=== PATIENT | female | born 1975 | race Caucasian/White ===

== ENCOUNTER 2025-07-13 21:15 | Inpatient (IN) | payer BC ==
[~2025-07-13] VITALS: Ht 165.1 cm; Wt 53.5 kg
--- NOTE | 2025-07-13 21:46 | ELECTROCARDIOGRAPH REPORT ---
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 Jesus Vogel Measurements Intervals [place] Rate: 66 P: 81 ID: [id number] QRS: 83 QRSD: 94 T: 50 QT: 378 QTc: 396 Interpretive Statements Sinus rhythm Minimal ST depression, diffuse leads Electronically Signed On 07-14-2025 7:35:[address] Jesus Vogel Please click the below link to view image of tracing.
[2025-07-13 22:08] LABS: MEAN PLATELET VOLUME 7.4 FL (7.4-10.4); RED CELL DISTRIBUTION WIDTH 13.1 % (11.5-14.5)
--- NOTE | 2025-07-13 22:15 | RADIOLOGY REPORT ---
CHEST RADIOGRAPH INDICATION: CP TECHNIQUE: Single frontal view of the chest was obtained COMPARISON: None FINDINGS: Lungs and pleural spaces are clear. Cardiac silhouette and rodrick are within normal limits. Bones and soft tissues demonstrate no significant abnormality. IMPRESSION: No acute disease.
[2025-07-13 22:26] LABS: CREATININE 0.96 MG/DL (0.40-0.90); TOTAL CARBON DIOXIDE 23.7 MMOL/L (24-32); eCRCL 61 ML/MIN; eGFR 62 ML/MIN
[2025-07-13 22:34] LABS: PRO BRAIN NATRIURETIC PEPTIDE 148 PG/ML (0-125)
--- NOTE | 2025-07-13 23:30 | Physician Documentation ---
History of Present Illness Chief Complaint: Abdominal Pain Stated Complaint: ABD PAIN HPI This is a medical screening examination for a 49-year-old female who presents to the emergency department with a epigastric pain that radiates to the back & shoulder with mild nausea. Pain is moderate in severity. No changes in stool color. Pain is postprandial a proximally 15-20 minutes. Has a gallbladder imaging in the past which was unremarkable and he has had esophageal diet rotation past. Reports that this pain is different in character. Medication Reconciliation Allergies: Uncoded Allergies: PENICILLIN (Allergy, Unknown, 07/13/25) Scheduled Bupropion HCl (Bupropion Xl), 1 TAB DAILY, (Reported) Estradiol (Estradiol), 1 TAB PO BID, (Reported) Pantoprazole Sodium (PROTONIX tablet), 40 MG PO BID Progesterone,Micronized (Progesterone), 2 TAB PO HS, (Reported) Testosterone (Testosterone), 10 MG TOP DAILY, (Reported) Thyroid,Pork (Freight Caller Thyroid), 1 TAB PO QAM, (Reported) Scheduled PRN Alprazolam (Alprazolam), 1 TAB PO BID PRN for for anxiety/agitation, (Reported) ONDANSETRON ODT 4mg tablet (Ondansetron Odt), 1 TAB PO BID PRN for nausea/vo miting, (Reported) Review of Systems Constitutional: Reports: see HPI Physical Exam Vital Signs: RN Vital Signs have been reviewed: Yes, Temperature: 97.9, Heart Rate: 106, Respiratory Rate: 22, BP: 122/66, Pulse Oximetry: 98, Weight: 53.500 Oxygen Flow Rate: 0 General Appearance: alert, WD/WN, moderate distress EENT: PERRL/EOMI Neck: normal inspection Respiratory: lungs clear, no respiratory distress Chest: no accessory muscle use Gastrointestinal: tenderness Back: tender Extremities: normal range of motion Neurologic: oriented x4 Psychiatric: normal mood/affect Skin: normal color Progress Results/Orders Results/Orders Vital Signs 07/13/25 21:17 Temp 97.9 Pulse 106 Resp 22 B/P (MAP) 122/66 Pulse Ox 98 O2 Flow Rate 0 Laboratory Tests Test 07/13/25 21:41 White Blood Count 11.8 H Red Blood Count 4.49 Hemoglobin 13.4 Hematocrit 40.2 Mean Corpuscular Volume 89.6 Mean Corpuscular Hemoglobin 29.8 Mean Corpuscular Hemoglobin Concent 33.3 Red Cell Distribution Width 13.1 Platelet Count 348 Mean Platelet Volume 7.4 Neutrophils (%) (Auto) 81.1 H Lymphocytes (%) (Auto) 12.2 L Monocytes (%) (Auto) 4.2 Eosinophils (%) (Auto) 2.3 Basophils (%) (Auto) 0.2 Neutrophils # (Auto) 9.6 H Lymphocytes # (Auto) 1.4 Monocytes # (Auto) 0.5 Eosinophils # (Auto) 0.3 Basophils # (Auto) 0.0 CBC Comment Sodium Level 141 Potassium Level 3.8 Chloride Level 109 H Carbon Dioxide Level 23.7 L Anion Gap 8 Blood Urea Nitrogen 11 Creatinine 0.96 H Estimated GFR/1.73 m2 62 BUN/Creatinine Ratio 11.5 Glucose Level 116 H Calcium Level 8.5 Total Bilirubin 0.4 Aspartate Amino Transf (AST/SGOT) 23 Alanine Aminotransferase (ALT/SGPT) 24 Alkaline Phosphatase 73 Troponin I High Sensitivity 11 Pro-B-Type Natriuretic Peptide 148 H Total Protein 6.8 Albumin 3.5 Globulin 3.3 Albumin/Globulin Ratio 1.1 Lipase 92 H Chemistry Comments EKG/XRAY/CT/US/VASC/MRI Chest X-Ray : Additional Comments CHEST RADIOGRAPH INDICATION: CP TECHNIQUE: Single frontal view of the chest was obtained COMPARISON: None FINDINGS: Lungs and pleural spaces are clear. Cardiac silhouette and rodrick are within normal limits. Bones and soft tissues demonstrate no significant abnormality. IMPRESSION: No acute disease. : Impression EXAM: CT CT ABDOMEN PELVIS W/ IV CONTRAST History: Epigastric pain COMPARISON: None TECHNIQUE: Multidetector spiral CT of the abdomen and pelvis was performed from lung bases to pubic symphysis. Intravenous contrast was administered during this examination. Portal venous imaging was obtained. Axial, coronal and sagittal multiplanar reformats were performed by the technologist on a separate workstation. Radiation Dose : 1. Abdomen/Pelvis: CTDIvol 8.47 mGy, DLP 356.49 mGy*cm. CONTRAST: Type of contrast: Omnipaque 300 Contrast injected: 100 ml FINDINGS: Lung Bases: No acute or significant lung base finding. Normal heart size. No pleural or pericardial effusion. Liver: The liver is normal in size. No focal lesions. Normal hepatic vascular enhancement. Gallbladder and Biliary Tree: Unremarkable Spleen: Unremarkable Pancreas: The pancreas is normal in appearance without focal lesions or abnormal enhancement. Adrenal Glands: Unremarkable Kidneys: No hydronephrosis. Bladder: Unremarkable Bowel: The stomach is grossly normal in appearance. Small bowel and colon are normal in caliber and distribution. Normal appendix is visualized in the right lower quadrant without findings of appendicitis. Ascites: Absent Lymphadenopathy: No mesenteric, retroperitoneal or periportal lymphadenopathy. Abdominal Wall and Mesentery: Unremarkable. Vasculature: The visualized abdominal aorta is normal in size and caliber. Abdominal and pelvic vessels demonstrate normal enhancement. Pelvic Organs: Unremarkable Musculoskeletal: No aggressive focal bony lesions, acute fractures or dislocation. IMPRESSION: No acute abdominal or pelvic finding. Medical Decision Making Additional information obtaine: N/A Findings Medical screening examination completed. 49-year-old female with a epigastric pain. We will add advanced imaging to evaluate for intra-abdominal surgical pathologies. Initial labs and chest x-ray imaging reviewed. Mild leukocytosis noted which may be demargination and/or infectious process. Patient awaits for bedded main ED. She is in moderate distress. Additional imaging may be indicated such as ultrasound. Differential Dx:Considerations: Appendicitis, Gastritis/PUD, Gastroenteritis, Hepatitis, Pancreatitis Additional Comments 49-year-old female presenting with acute on chronic abdominal pain. Lab workup does indicate a very minimally elevated lipase level as well as a minimally elevated WBC count. Patient has no risk factors for pancreatitis however clinically presents this way. Remainder of lab work is grossly unremarkable. CT of the abdomen and pelvis was unremarkable as well. This occurred after the patient had a meal is consistent with fatty foods. I suspect some early pancreatitis. Patient was given a GI cocktail which improved her symptoms but did not fully resolve them. Patient is still markedly uncomfortable in the clinical picture fits early pancreatitis. For this reason I believe it would be prudent to have her admitted further treating written care. I started her on IV fluids and gave her a dose of IV morphine. Departure Disposition: ADMITTED INPATIENT Admitted to Inpatient Unit: to hospitalist Impression: Primary Impression: Pancreatitis Qualified Codes: K85.90 - Acute pancreatitis without necrosis or infection, unspecified Condition: Guarded Referrals: NO PRIMARY CARE PROVIDER (PCP) Prescriptions Pantoprazole Sodium (PROTONIX tablet) 40 Mg Tablet. 40 MG PO BID, #60 TAB.SR Prov: ANTHONY ALICIA DO 07/14/25 [facility] Form Admit Criteria Met or Not Met: YES Signature Scribe Signature: 1 Attestation: The note accurately reflects work and decisions made by me.Arabella Lucas MD 07/14/25 03:29 JOSE ANTONIO ORLANDO Jul 13, 2025 23:30 ARABELLA GARCIA MD Jul 14, 2025 02:17
[2025-07-13] MEDS ORDERED: iohexol 300mg/ml 100ml inj. ONE (23:42)
[2025-07-14] VITALS (17 sets, daily range): BP systolic 74–139; BP diastolic 39–89; PULSE 60–89; RESP 12–19; TEMP 97.3–98.2; O2SAT 93–100
--- NOTE | 2025-07-14 02:21 | RADIOLOGY REPORT ---
EXAM: CT CT ABDOMEN PELVIS W/ IV CONTRAST History: Epigastric pain COMPARISON: None TECHNIQUE: Multidetector spiral CT of the abdomen and pelvis was performed from lung bases to pubic symphysis. Intravenous contrast was administered during this examination. Portal venous imaging was obtained. Axial, coronal and sagittal multiplanar reformats were performed by the technologist on a separate workstation. Radiation Dose : 1. Abdomen/Pelvis: CTDIvol 8.47 mGy, DLP 356.49 mGy*cm. CONTRAST: Type of contrast: Omnipaque 300 Contrast injected: 100 ml FINDINGS: Lung Bases: No acute or significant lung base finding. Normal heart size. No pleural or pericardial effusion. Liver: The liver is normal in size. No focal lesions. Normal hepatic vascular enhancement. Gallbladder and Biliary Tree: Unremarkable Spleen: Unremarkable Pancreas: The pancreas is normal in appearance without focal lesions or abnormal enhancement. Adrenal Glands: Unremarkable Kidneys: No hydronephrosis. Bladder: Unremarkable Bowel: The stomach is grossly normal in appearance. Small bowel and colon are normal in caliber and distribution. Normal appendix is visualized in the right lower quadrant without findings of appendicitis. Ascites: Absent Lymphadenopathy: No mesenteric, retroperitoneal or periportal lymphadenopathy. Abdominal Wall and Mesentery: Unremarkable. Vasculature: The visualized abdominal aorta is normal in size and caliber. Abdominal and pelvic vessels demonstrate normal enhancement. Pelvic Organs: Unremarkable Musculoskeletal: No aggressive focal bony lesions, acute fractures or dislocation. IMPRESSION: No acute abdominal or pelvic finding. Radiation optimization: All CT scans at this facility use at least one of these dose optimization techniques: automated exposure control mA and/or kV adjustment per patient size (includes targeted exams where dose is matched to clinical indication) or iterative reconstruction.
[2025-07-14] MEDS: LIDOcaine 2% Viscous 15ml cup MM ONE (03:02)
[2025-07-14] MEDS: mag hydrox/Alum hydrox/simeth 30ml oral suspension PO ONE (03:02)
[2025-07-14] MEDS: ondansetron 4mg rapidly disintigrating tab PO STA (03:02)
[2025-07-14] MEDS ORDERED: ondansetron/PF 4mg/2ml inj IV PRN (04:10)
[2025-07-14] MEDS: morphine 4 MG/ML inj SYRINge IV ONE (04:22)
[2025-07-14] MEDS: normal saline 1000ml 1,000 ML IV ONE (04:24)
--- NOTE | 2025-07-14 05:15 | HISTORY AND PHYSICAL-Residence ---
History & Physical Providers to CC Resident Creating Document: ANGELITO MALAGON RES ~ History of Present Illness Reason for Admit\Complaint: Abdominal pain History of Present Illness The patient is a 49-year-old female with no significant past medical history who presented with the acute onset abdominal pain. The pain began abruptly last night at approximately 8:00 p.m., about 30 minutes after eating an in and out burger. It was described as sharp, stabbing, severe, 9/10, located in the epigastric region, and radiating to the back. The pain was associated with nausea but no vomiting. By the time she arrived to the ED, the pain had largely subsided, however, she continues to have significant epigastric tenderness to palpation. She reports a two year history of intermittent abdominal discomfort, though she states this episode feel different in character in severity. She underwent EGD approximately nine months ago, which showed a hiatal hernia and GERD; esophageal dilatation was performed and no biopsy were taken. She denies diarrhea but endorses persistent nausea and unintentional weight loss of approximately 25-30 lb over the past year, primarily due to decreased oral intake because nausea is triggered when attempting to eat. She denies alcohol use, new medications, or NSAID use. She does not take any regular medications. Her PCP is MARK Guo through [facility]. In the ED, lab workup was notable for mild leukocytosis; 11.8, and a mildly elevated lipase of 92. Liver tests were normal. CT scan of the abdomen and pelvis was unremarkable. She was admitted for further evaluation and management of abdominal pain. Allergies: Uncoded Allergies: PENICILLIN (Allergy, Unknown, 07/13/25) Past Medical History Past Medical History Irritable bowel syndrome, hiatal hernia, GERD Past Surgical History Surgical History Comment No significant surgical history Past Social History Social History Comment Patient lives with her family. Denies smoking, alcohol, or recreational drugs ROS All Other Systems: Reviewed and Negative ROS As stated above in the HPI, otherwise all systems are reviewed and negative. Exam Vitals: Vital Signs Date Time Temp Pulse Resp B/P (MAP) Pulse Ox O2 Delivery O2 Flow Rate FiO2 07/14/25 04:22 16 07/14/25 01:09 07/13/25 21:17 97.9 106 98 0 General: Awake and Alert, no acute distress. HEENT: Conjunctiva pink, Sclera clear, Mucus Membranes moist. Neck: Supple without masses and tenderness. Resp: Unlabored. Lungs clear to auscultation bilaterally. Heart: Regular Rate and rhythm, normal S1 and S2 without murmur, rub or gallop. Abdomen: Markedly tender epigastric region. Bowel sounds present Extremities: No cyanosis,clubbing or edema. Skin: Warm and Dry. Diagnostic Data Last Recorded Lab Results: 07/13/25214007/13/252140 Advance Care Planning Advanced Care plannin - 30 Minutes Additional Plan 1. Epigastric abdominal pain Concern for peptic/upper GI source versus early/mild pancreatitis Abrupt severe epigastric pain radiating to the back after a fatty meal, associated with nausea Pain has largely resolved but persistent epigastric tenderness remains Lipase mildly elevated at 92; this does not meet diagnostic criteria for pancreatitis, though very early or mild pancreatitis remains possible CTA abdomen unremarkable LFTs normal, lowering suspicion for biliary obstruction. Abdominal ultrasound pending Prior EGD showed hiatal hernia with reflux Red flags present; unintentional 25-30 lb weight loss, chronic nausea, poor oral intake Plan: Keep NPO initially; advance diet slowly as tolerated IV fluids; LR 100 mL/hour Antiemetics; Zofran Protonix 40 mg IV daily Repeat lipase and CMP in the morning to trend Consider GI consult given chronic symptoms and significant weight loss 2. Chronic nausea with significant unintentional weight loss 25-30 lb/one year Concerning for organic GI pathology rather than IBS alone. PUD versus gastritis versus GERD versus celiac disease Plan: Consider repeat EGD with biopsies 3. Leukocytosis: WBC 11.8 Likely reactive giving symptoms and normal imaging Trend CBC. Monitor vitals and exam Code status: Full code DVT prophylaxis: Able to walk Angelito Malagon Internal Medicine Resident, PGY-3 Plan reviewed with bedside team. Patient seen through remote audiovisual assessment through HIPAA compliant setup. All labs, flowsheets, and images reviewed Cumulative nonprocedural care time spent in directed patient care = 30 min Date of Service: Jul 14, 2025 Billing Provider: DARWIN JIM MD, SHAMS, RES Jul 14, 2025 05:15 DARWIN JIM MD Jul 14, 2025 07:13
[2025-07-14] MEDS: ringers solution, lacted 1,000 ML IV SCH (06:04)
[2025-07-14] MEDS: enoxaparin 40mg/0.4ml syringe SUBCUT SCH (08:00)
[2025-07-14] MEDS ORDERED: ONDA-243 PO (09:38)
[2025-07-14] MEDS ORDERED: ALPR0.5T9 PO (09:38)
[2025-07-14] MEDS ORDERED: THYR90TA12 PO (09:38)
[2025-07-14] MEDS ORDERED: PROG200C11 PO (09:38)
[2025-07-14] MEDS ORDERED: ESTR1TAB28 PO (09:38)
[2025-07-14] MEDS ORDERED: BUPR-480 (09:38)
[2025-07-14] MEDS ORDERED: TEST60GE3 TOP (10:08)
[2025-07-14] MEDS ORDERED: propofol 10mg/ml 20ml vial IV ONE (11:45)
[2025-07-14] MEDS ORDERED: PANT-47 PO (14:04)
[2025-07-14] MEDS: pantoprazole 40MG/NS 100ML BAG 100 ML IV SCH (16:50)
[2025-07-14] MEDS: normal saline 1000ml 1,000 ML IV SCH (16:50)
--- NOTE | 2025-07-14 17:37 | CONSULTATION REPORT - RESIDENT ---
Consult Providers to CC Resident Creating Document: PRAVEENMARCUS SARABIA RES History of Present Illness Reason for Admit\Complaint: Epigastric pain History of Present Illness This is a 49-year-old female who came to the ER with a chief complaint of postprandial epigastric pain. Yesterday evening she had a burger and post that she developed a severe epigastric pain, dull achy type, radiating to the back, the pain lasted for about 4-5 hours and then subsided when she came to the ER. She reports nausea but denies vomiting or diarrhea. She reports that she has frequent episodes of such postprandial abdominal pain and is usually associated with nausea and bilious vomiting. She denies any hematemesis or melena. She had an EGD nine months ago for dysphagia to solid foods and had esophageal dilatation, currently she reports that she does not have any difficulty in swallowing. She uses NSAIDs about once in three days for headache. Allergies: Uncoded Allergies: PENICILLIN (Allergy, Unknown, 07/13/25) Home Medications Home Medications Active Reported Testosterone 10 Mg (2%) Gel..machine puller and laster 10 Mg TOP DAILY 10 mg per 1/2 ml cream Ondansetron Odt (Ondansetron HCl) 4 Mg Tab.rapdis PO Bupropion Xl (Bupropion HCl) 300 Mg Tab.er.24h 1 Tab DAILY Estradiol 1 Mg Tablet 1 Tab PO BID Progesterone (Progesterone,Micronized) 200 Mg Capsule 2 Tab PO HS Alprazolam 0.5 Mg Tablet 1 Tab PO BID PRN Blind Stitch Machine Operator Thyroid (Thyroid,Pork) 90 Mg Tablet 1 Tab PO QAM Past Medical History Past Medical History Irritable bowel syndrome, hiatal hernia, GERD Past Surgical History Surgical History Comment No significant surgical history Past Social History Social History Comment Patient lives with her family. Denies smoking, alcohol, or recreational drugs ROS ROS As in HPI Exam Vitals: Vital Signs Date Time Temp Pulse Resp B/P (MAP) Pulse Ox O2 Delivery O2 Flow Rate FiO2 07/14/25 13:30 64 16 127/89 (102) 98 Room Air 0.0 07/14/25 11:54 96.8 General: General: Awake and Alert, no acute distress. HEENT: Conjunctiva pink, Sclera clear, Mucus Membranes moist. Neck: Supple without masses and tenderness. Resp: Unlabored. Lungs clear to auscultation bilaterally. Heart: Regular Rate and rhythm, normal S1 and S2 without murmur, rub or gallop. Abdomen: Markedly tender epigastric region. Bowel sounds present Extremities: No cyanosis,clubbing or edema. Skin: Warm and Dry. Diagnostic Data Last Recorded Lab Results: 07/13/25214007/13/252140 Additional Plan Gastritis and duodenitis Reports postprandial epigastric pain Mildly elevated lipase LFTs normal Abdominal CT with IV contrast normal EGD showed-normal esophagus, congested, erythematous, eroded and granular mucosa and gastric body, antrum and pre-pyloric region of the stomach which was biopsied, duodenitis Plan Avoid NSAIDs Resume regular diet Await pathology results. Marcus Baeza M.D PGY2 GI resident Date of Service: Jul 14, 2025 Billing Provider: KAROL AZAR MD, PRAVAHIKA, RES Jul 14, 2025 17:37
--- NOTE | 2025-07-14 18:26 | PROGRESS NOTE ---
Daily Progress Note Providers to CC ~ Antibiotic Timeout Antibiotic Ordered?: No Subjective The patient informed me I saw her post EGD that she has been taking ibuprofen couple of times a week on an empty stomach-the patient is enquiring about the cause of her gastric ulcer Objective Vital Signs Date Time Temp Pulse Resp B/P (MAP) Pulse Ox O2 Delivery O2 Flow Rate FiO2 07/14/25 13:35 97.8 64 16 139/83 (101) 98 Room Air 07/14/25 13:30 0.0 Result Diagram: 07/13/25214007/13/252140 Gen. No acute distress alert and oriented 4 Lungs clear to ascultation bilaterally, no wheezes rales or rhonchi appreciated Heart normal sinus rhythm no murmurs rubs or clicks noted Abdomen soft mild epigastric tenderness bowel sounds are normoactive Lower extremities no clubbing cyanosis, nor edema appreciated bilaterally Problem\Assessment\Plan The patient has a history of esophageal dilatation nine months ago- came in with significant epigastric pain after eating a hamburger- has mildly elevated lipase An EGD was obtained by Dr. Montano that has discovered a gastric ulcer which is likely secondary to NSAID use without eating food- is on a Protonix drip Date of Service: Jul 14, 2025 Billing Provider: ANTHONY ALICIA DO Common Visit Codes: NOT BILLABLE (Admitted after midnight to be billed by predatory animal trapper) ANTHONY ALICIA DO Jul 14, 2025 18:26
[2025-07-15 05:00] VITALS: BP 110/60; PULSE 71; RESP 14; TEMP 97.5; O2SAT 100
[2025-07-15 05:49] LABS: MEAN PLATELET VOLUME 7.7 FL (7.4-10.4); RED CELL DISTRIBUTION WIDTH 12.8 % (11.5-14.5)
[2025-07-15 06:11] LABS: CREATININE 0.92 MG/DL (0.40-0.90); TOTAL CARBON DIOXIDE 26.5 MMOL/L (24-32); eCRCL 63 ML/MIN; eGFR 65 ML/MIN
[2025-07-15] MEDS: thyroid, pork 30mg tablet PO SCH (08:54)
[2025-07-15] MEDS: BUPROPION HCL 150MG XL 24 HR 150 MG TAB PO SCH (08:54)
[2025-07-15 10:00] VITALS: BP 131/71; PULSE 74; RESP 15; TEMP 97.1; O2SAT 99
[2025-07-15] MEDS ORDERED: ondansetron 4mg rapidly disintigrating tab PO PRN (10:35)
--- NOTE | 2025-07-15 12:48 | DISCHARGE SUMMARY ---
Discharge Summary Providers to CC ~ Discharge Summary Admission Diagnosis: EPICGASTRIC PAIN , SUSPECT PANCREATITIS Hospital Course DATE OF ADMISSION: 07/14/2025 DATE OF DISCHARGE: 07/15/2025 Discharge Diagnosis\Comment: Peptic ulcer disease dysphagia abdominal pain Operations\Procedures: None Consultants: None Complications: None Condition on DC: Stable New Medications: Pantoprazole Sodium (PROTONIX tablet) 40 Mg Tablet.dr 40 MG PO BID, #60 TAB.SR Discharge Summary: Reason for Admit\Complaint: Abdominal pain History of Present Illness The patient is a 49-year-old female with no significant past medical history who presented with the acute onset abdominal pain. The pain began abruptly last night at approximately 8:00 p.m., about 30 minutes after eating an in and out burger. It was described as sharp, stabbing, severe, 9/10, located in the epigastric region, and radiating to the back. The pain was associated with nausea but no vomiting. By the time she arrived to the ED, the pain had largely subsided, however, she continues to have significant epigastric tenderness to palpation. She reports a two year history of intermittent abdominal discomfort, though she states this episode feel different in character in severity. She underwent EGD approximately nine months ago, which showed a hiatal hernia and GERD; esophageal dilatation was performed and no biopsy were taken. She denies diarrhea but end orses persistent nausea and unintentional weight loss of approximately 25-30 lb over the past year, primarily due to decreased oral intake because nausea is triggered when attempting to eat. She denies alcohol use, new medications, or NSAID use. She does not take any regular medications. Her PCP is NPO Francesco Guo through [facility]. In the ED, lab workup was notable for mild leukocytosis; 11.8, and a mildly elevated lipase of 92. Liver tests were normal. CT scan of the abdomen and pelvis was unremarkable. She was admitted for further evaluation and management of abdominal pain. Patient is alert and oriented x4 in no acute distress lying down comfortably speaking in full sentences HEENT normocephalic nontraumatic head PERRLA. EOMI. Neck is supple no JVD no bruit CVS first and second heart sounds are regular rate rhythm no murmurs gallops or rubs Respiratory system is clear to auscultate bilaterally no rales rhonchi crackles or wheezing Abdomen and epigastric and right upper quadrant plus one tenderness no rebound no rigidity no voluntary guarding no masses appreciated Extremities no clubbing cyanosis or edema Hospital course patient is a pleasant 49-year-old that was admitted secondary to abdominal pain and difficulty swallowing after she had a burger. She was seen in consultation by GI on-call. They did an EGD. Patient is noted to have peptic ulcer disease. Patient is started on IV Protonix. Patient advised against NSAID use. Patient advised to follow a CAPA free diet. Patient advised to follow with PCP and GI in one week. Patient's vital signs and labs are within normal limits. Per her request she was concerned about her epigastric pain and wanted an ultrasound this was done. *Problems/Diagnosis: (1) Abdominal pain Status: Acute (2) Gastric ulcer Total Time Spent on D/C: > 30 Minutes Date of Service: Jul 15, 2025 Billing Provider: CARA CROCKETT MD Common Visit Codes: 00269-WIK/OBS DISCH DAY >30min CARA CROCKETT MD Jul 15, 2025 12:48
[2025-07-15] MEDS ORDERED: progesterone, micronized 100mg capsule PO SCH (21:00)
== END 2025-07-15 14:25 | disposition home or self-care (01) | DRG 383 ==
LOC: ER 21:16 → ED HOLD 07-14 04:09 → SUR 3N 07-14 07:39
PROVIDERS: ADMIT Internal Medicine; ATTEND Family Medicine
PROC: 0DB78ZX Excision of Stomach, Pylorus, Via Natural or Artificial Opening Endoscopic, Diagnostic (ICD-10-PCS; 2025-07-14)
PROC: BW211ZZ Computerized Tomography (CT Scan) of Abdomen and Pelvis using Low Osmolar Contrast (ICD-10-PCS; 2025-07-14)
PROC: 0DB68ZX Excision of Stomach, Via Natural or Artificial Opening Endoscopic, Diagnostic (ICD-10-PCS; principal; 2025-07-14 11:34)
DX: K25.9 Gastric ulcer, unspecified as acute or chronic, without hemorrhage or perforation (principal); K85.90 Acute pancreatitis without necrosis or infection, unspecified; K29.60 Other gastritis without bleeding; K44.9 Diaphragmatic hernia without obstruction or gangrene; K31.89 Other diseases of stomach and duodenum; K21.9 Gastro-esophageal reflux disease without esophagitis; D72.829 Elevated white blood cell count, unspecified; R74.8 Abnormal levels of other serum enzymes; Z88.0 Allergy status to penicillin; Z79.899 Other long term (current) drug therapy
CPT/HCPCS: 36415; 43239; 71045; 74177; 80053; 82948; 83690; 83880; 84443; 84484; 85025; 87081; 93005; 99285; A4615; G0378; J2270; J2470; J2704; J7030; J7120; Q9967